=== PATIENT | female | born 1960 | race Caucasian/White ===

== ENCOUNTER 2022-01-26 01:17 | Day surgery (SDC) | payer OTHER, SELFPAY ==
[2022-01-25 10:45] VITALS: BMI 27.3
[2022-01-26] VITALS (14 sets, daily range): BP systolic 90–131; BP diastolic 54–82; PULSE 58–110; RESP 16–20; TEMP 36.4; O2SAT 94–100; BMI 28.1
--- NOTE | 2022-01-26 07:30 | ECG_ITS ---
Measurements Intervals [place] Rate: 61 P: 41 [place]: 161 QRS: 64 QRSD: 77 T: 38 QT: 417 QTc: 423 Interpretive Statements SINUS RHYTHM NORMAL ECG Electronically Signed On 01-26-2022 15:25:52 CDT by Jorge Fernandez D.O.
[2022-01-26 08:04] LABS: Anion Gap 4 mmol/L (8-16); Blood Urea Nitrogen 14 mg/dL (7-17); Carbon Dioxide 28 mmol/L (22-30); Chloride 104 mmol/L (98-107); Estimated CRCL calculation 67 ml/min; Estimated Glomerular Filt Rate > 60; Glucose 130 mg/dL (65-110); Magnesium 1.7 mg/dL (1.6-2.3); Potassium 4.3 mmol/L (3.4-5.0); Sodium 136 mmol/L (137-145)
--- NOTE | 2022-01-26 09:00 | ECG_ITS ---
Measurements Intervals [place] Rate: 98 P: [place]: 0 QRS: 43 QRSD: 83 T: -43 QT: 375 QTc: 481 Interpretive Statements ATRIAL FIBRILLATION VENTRICULAR PREMATURE COMPLEX ABNORMAL ECG Electronically Signed On 01-26-2022 7:49:36 CDT by Jorge Fernandez D.O.
--- NOTE | 2022-01-26 09:01 | WPDMODSED ---
Moderate Sedation Note-Pt Data Patient Data Diagnosis: Atrial fibrillation, persistent Present Complaint: No complaints Procedure to be performed/Plan: DC cardioversion Allergies Allergy/AdvReac Type Severity Reaction Status Date / Time No Known Allergies Allergy Verified 01/26/22 07:46 Home Medications Medication Instructions Recorded Confirmed Type spironolactone 100 mg tablet 100 mg PO DAILY 03/07/21 01/25/22 History calcium-vitamin D3 See Rx Instructions .Route .COMPLEX 01/25/22 01/25/22 History metformin 500 mg tablet,extended See Rx Instructions .Route .COMPLEX 01/25/22 01/25/22 History release 24 hr rivaroxaban 20 mg tablet (Xarelto) 1 tablet PO DAILY 01/25/22 01/25/22 History Current Medications: Active Medications Sodium Chloride (Normal Saline Iv) 1,000 mls @ 30 mls/hr IV CONT .Q24H SHARON Sedation/Anesthesia: No previous sedation/anesthesia problems (including family history). [facility] Surgical History Surgical History H/O hemorrhoidectomy H/O rhinoplasty H/O tubal ligation Family History Family History Father Heart disease Diabetes mellitus Mother Heart disease Social History Social History Smoking status: Never smoker Alcohol intake: current Alcohol use details: not usually, only socially Substance use: never Substance use type: does not use Living arrangements: other Additional occupation/education comments: [employer] Spiritual care concerns: No Mod Sed Physical Exam Physical Exam Pre Procedural Exam: Normal: Appearance, Neck, Throat, Airway, Lungs, Heart Size, Heart Rate, Neuro Exam and Extremities and Variation: Heart Rhythm (Irregularly irregular) Hours since solid foods: 14 Hours since liquid intake: 14 Mallampati Classification: class II Internal Medicine - PN: Obj Da Vital Signs Vital Signs: Vital Signs - 24 hr 01/26/22 07:48 Temperature 36.4 C Pulse Rate 95 Respiratory Rate 20 Blood Pressure 131/73 Pulse Oximetry 100 Oxygen Delivery Room Air Meds/Results Medications: Active Medications Generic Name Dose Route Start Last Admin Trade Name Freq PRN Reason Stop Dose Admin Sodium Chloride 1,000 mls @ 30 mls/hr 01/26/22 07:30 Normal Saline Iv IV CONT .Q24H SHARON Labs CBC & Chem 7: 01/26/22 07:45 Labs: Laboratory Results - last 24 hr 01/26/22 07:45 Sodium 136 L Potassium 4.3 Chloride 104 Carbon Dioxide 28 Anion Gap 4 L BUN 14 Creatinine 0.90 Estim Creat Clear Calc 67 Estimated GFR > 60 Glucose 130 H Calcium 9.0 Magnesium 1.7 ASA Classification/Sedation ASA Classification/Sedation ASA Class: II Emergent: No Risks: Risks, benefits and alternatives explained and patient/family accepted plan for sedation. Patient re-evaluated immediately prior to sedation.
--- NOTE | 2022-01-26 09:13 | P.PCNCC_ITS ---
Cardiac Cath Procedure Note Date of procedure:: 01/26/22 Performing physician:: Duarte Carrizales MD Indication:: Persistent atrial fibrillation Brief clinical history:: This is a 61-year-old woman who was found to have atrial fibrillation as an outpatient which is asymptomatic and persistent and of on known duration. Procedure Procedure performed:: DC cardioversion Sedation/Medication given:: IV propofol total dosage of 60 mg Estimated blood loss:: No blood loss Procedure note:: Patient was brought to the cardiac slab off mill tender holding area where she was in the postabsorptive state. IV access was placed in the right arm and defibrillator patches were placed in the AP position. She was then sedated with propofol a total dosage of 60 mg was given in aliquots which provided excellent sedation. She was DC cardioverted with 200 joules x1 shock restoring normal sinus rhythm Findings:: As above Conclusion:: Successful uncomplicated DC cardioversion of atrial fib to sinus rhythm using 200 joules x1 shock. Duarte Carrizaels MD [facility]
[2022-01-26] MEDS: SOTALOL HCL 80 MG TABLET PO (09:36)
--- NOTE | 2022-01-26 11:01 | SUR.PHASEII ---
iv d/c tip intact. d/c instructions given and new medication education given as well as side effects. patient and verbalize understanding and all questions and concerns addressed. patient taken to personal vehicle via [place], [place] her home.
== END 2022-01-26 10:55 | disposition home or self-care (01) ==
PROVIDERS: PCP Family Medicine; Visit Provider Specialist
PROC: 5A2204Z Restoration of Cardiac Rhythm, Single (ICD-10-PCS; principal; 2022-01-26 09:00)
DX: I48.19 Other persistent atrial fibrillation (principal); Z79.01 Long term (current) use of anticoagulants
CPT/HCPCS: 36415; 80048; 83735; 92960; A9270; J2704; J7040

== ENCOUNTER 2022-01-27 11:49 | Outpatient (CLI) | payer OTHER, SELFPAY ==
--- NOTE | 2022-01-27 | ECG_ITS ---
Measurements Intervals [place] Rate: 48 P: 34 [place]: 162 QRS: 60 QRSD: 81 T: 48 QT: 473 QTc: 423 Interpretive Statements SINUS BRADYCARDIA BORDERLINE ST-T WAVE ABNORMALITY- INF/LAT LEADS BASELINE WANDER- I, II, AVR, AVL,A VF, V4, V6 ABNORMAL ECG Electronically Signed On 01-27-2022 15:32:10 CDT by Jorge Fernandez D.O.
== END 2022-01-27 11:50 | disposition home or self-care (01) ==
LOC: ANHCARD 11:53
PROVIDERS: PCP Family Medicine; Visit Provider Specialist
DX: I48.91 Unspecified atrial fibrillation (principal); R94.31 Abnormal electrocardiogram [ECG] [EKG]
CPT/HCPCS: 93005

== ENCOUNTER → 2022-05-19 09:56 | Outpatient (CLI) | payer OTHER, SELFPAY ==
--- NOTE | ~2022-05-19 | DEXA_ITS ---
Bone Density Report Name: ADELE BARRY Age: 61 Sex: Female Ethnicity: White Date of : 1960 Indication: monitoring treatment; postmenopausal Referring Provider: YAJAIRA, LINDSEY Gallegos Study: Bone densitometry was performed. Exam Date: May 19, 2022 Accession number: [id number] Bone Density: Region BMD T-score Z-score Classification AP Spine (L1, L2, L3) 1.170 1.4 2.9 Normal Femoral Neck (Left) 0.834 -0.1 1.2 Normal Total Hip (Left) 1.026 0.7 1.8 Normal Femoral Neck (Right) 0.777 -0.7 0.7 Normal Total Hip (Right) 1.012 0.6 1.7 Normal Total Hip Mean 1.019 0.7 1.8 Normal World Health Organization criteria for BMD impression classify patients as: Normal (T-score at or above -1.0), Osteopenia (T-score between -1.0 and -2.5), or Osteoporosis (T-score at or below -2.5). 10-year Fracture Risk: FRAX not reported because: All T-scores for Spine Total, Hip Total, Femoral Neck at or above -1.0 Treated for osteoporosis Previous Exams: Region Exam Age BMD T-score BMD Change BMD Change Date g/cm2 vs Baseline vs Previous AP Spine(L1, L2, L3) 05/19/2022 61 1.170 1.4 0.168* 0.053* 09/07/2017 56 1.116 0.9 0.114* 0.036* 08/03/2014 53 1.080 0.6 0.078* 0.078* 07/19/2011 50 1.002 -0.1 Total Hip(Left) 05/19/2022 61 1.026 0.7 0.125* 0.046* 09/07/2017 56 0.980 0.3 0.079* 0.002 08/03/2014 53 0.977 0.3 0.077* 0.077* 07/19/2011 50 0.901 -0.3 Total Hip(Right) 05/19/2022 61 1.012 0.6 0.111* 0.053* 09/07/2017 56 0.960 0.1 0.058* 0.003 08/03/2014 53 0.957 0.1 0.056* 0.056* 07/19/2011 50 0.901 -0.3 *Denotes significance at 95% confidence level, LSC for AP Spine = 0.022 g/cm2, LSC for Total Hip = 0.027 g/cm2 Clinical Information Provided by Patient: Is being treated for osteoporosis Has used the following medications: HRT (i.e. estrogen/hormone therapy), Vitamin D Patient maximum height was 69.5 Menopause Age: 52 Does not regularly consume dairy products Drinks caffeinated beverages Onset of menses at age 11 Number of children 3 Impression: The patient has normal bone mass. No significant bone loss was observed. Discussion: PATIENT UNDER TREATMENT WITH NO SIGNIFICANT BMD LOSS SINCE LAST EXAM. In an untreated patient, BMD typically
== END ==
PROVIDERS: PCP Nurse Practitioner; Visit Provider Nurse Practitioner
DX: Z78.0 Asymptomatic menopausal state (principal)
CPT/HCPCS: 77080

== ENCOUNTER 2022-12-10 05:56 | Day surgery (SDC) | payer OTHER, SELFPAY ==
[2022-10-22 09:52] VITALS: BMI 25.1
[2022-11-27 13:56] VITALS: BMI 26.6
--- NOTE | 2022-12-07 13:02 | P.PNAN_ITS ---
Anes - Initial Pre Proc Eval Procedure: Operation Date: 12/10/22 07:30 Proposed Procedures p Screening Colonoscopy - Cal Dominguez MD Date/Time: 12/07/22 13:02 Surgeon: Cal Dominguez MD Pre Op Diagnosis: Neoplasm Screening Patient Data Age: 61 Gender: F Height: 1.75 m Weight: 82 kg Allergies Allergy/AdvReac Type Severity Reaction Status Date / Time No Known Allergies Allergy Verified 12/10/22 06:28 Home Medications Medication Instructions Recorded Confirmed Type spironolactone 100 mg tablet 100 mg PO DAILY 03/07/21 12/10/22 History calcium-vitamin D3 See Rx Instructions .Route .COMPLEX 01/25/22 12/10/22 History metformin 500 mg tablet,extended See Rx Instructions .Route .COMPLEX 01/25/22 12/10/22 History release 24 hr rivaroxaban 20 mg tablet (Xarelto) 1 tablet PO DAILY 01/25/22 12/10/22 History sotalol 80 mg tablet 80 mg PO Q12HR #60 tabs 01/26/22 12/10/22 Rx Patient hx anesthesia problems: none Family hx anesthesia problems: none Results Review: All pre-operative results and documents have been reviewed as part of the pre- operative evaluation. [facility] Past Medical History Medical History (Updated 12/07/22 @ 16:01 by Cal Dominguez MD) Atrial fibrillation Surgical History Surgical History H/O hemorrhoidectomy H/O rhinoplasty H/O tubal ligation Family History Family History Father Heart disease Diabetes mellitus Mother Heart disease Social History Social History Smoking status: Never smoker Alcohol intake: current Alcohol use details: socially Substance use: never Substance use type: does not use Living arrangements: with family Occupation/Education: occupation Additional occupation/education comments: [employer] Spiritual care concerns: No Anes - Eval Final PreProcedure Day of Procedure 12/07/22 13:02 Patient weight: overweight Heart: regular rate and rhythm Lungs: clear to auscultation Airway: Mallampati scale class II Neurological: alert and oriented Last oral intake: >/= 8 hours ASA classification: III Emergent: no Anesthetic plan: proceed Anesthesia type and monitoring: general GIVS and standard monitoring Results Review: All pre-operative results and documents have been reviewed as part of the pre- operative evaluation. Informed Consent: The patient's anesthetic plan and its attendant risks and benefits were discussed with the patient/family/POA. Questions were solicited and answers provided to the satisfaction of the patient/family/POA.
--- NOTE | 2022-12-07 16:00 | P.HP_ITS ---
History of Present Illness History of Present Illness Consent: Risks, benefits, and alternatives have been discussed and questions answered. Patient agrees to proceed with procedure. Chief complaint: Neoplasm Screening Narrative: Marcia Hernandez is a 61 year old female Referred for colon cancer screening. Her last colonoscopy was 5 years ago. She has a history of polyps. Review of Systems Review of Systems: All systems reviewed & are unremarkable except as noted in HPI and below PMFSH Past Medical History Medical History Atrial fibrillation Surgical History Surgical History H/O hemorrhoidectomy H/O rhinoplasty H/O tubal ligation Family History Family History Father Heart disease Diabetes mellitus Mother Heart disease Social History Social History Smoking status: Never smoker Alcohol intake: current Alcohol use details: socially Substance use: never Substance use type: does not use Living arrangements: with family Occupation/Education: occupation Additional occupation/education comments: Junior [employer] Spiritual care concerns: No Meds Home Medications and Allergies Home Medications Medication Instructions Recorded Confirmed Type spironolactone 100 mg tablet 100 mg PO DAILY 03/07/21 12/10/22 History calcium-vitamin D3 See Rx Instructions .Route .COMPLEX 01/25/22 12/10/22 History metformin 500 mg tablet,extended See Rx Instructions .Route .COMPLEX 01/25/22 12/10/22 History release 24 hr rivaroxaban 20 mg tablet (Xarelto) 1 tablet PO DAILY 01/25/22 12/10/22 History sotalol 80 mg tablet 80 mg PO Q12HR #60 tabs 01/26/22 12/10/22 Rx Allergies Allergy/AdvReac Type Severity Reaction Status Date / Time No Known Allergies Allergy Verified 12/10/22 06:28 Exam Const: General: alert Orientation/consciousness: patient oriented x3 Resp: Auscultation: clear to auscultation bilaterally Cardio: Rhythm: regular rhythm GI: GI Palp: Yes Soft to palpation and No Tenderness to palpation present (GI) Neuro: General: patient oriented x3 Assessment and Plan Assessment and plan (1) Colon cancer screening: Code(s): Z12.11 - Encounter for screening for malignant neoplasm of colon Status: Acute Assessment and Plan: Colonoscopy with possible biopsy or polypectomy or cautery or injection of substances.
[2022-12-10 06:26] VITALS: BP 107/69; PULSE 58; RESP 18; TEMP 36.7; O2SAT 100
[2022-12-10 06:45] LABS: Glucose Point of Care 93 mg/dl (65-105)
[2022-12-10] MEDS: LACTATED RINGERS 1,000 ML 150 ML IV CONT (06:51)
[2022-12-10 07:45] VITALS: BP 106/56; PULSE 66; RESP 16; O2SAT 97
[2022-12-10 07:55] VITALS: BP 95/65; PULSE 53; RESP 16; O2SAT 98
[2022-12-10 08:05] VITALS: BP 107/68; PULSE 56; RESP 16; O2SAT 98
--- NOTE | 2022-12-10 08:31 | SUR.PHASEII ---
12/10/22 0825 late note, Per Dr. Dominguez, Pt to resume Xarelto today 12/10/22. Pt verbalizes understanding.
--- NOTE | 2022-12-10 13:19 | WPDANESPN ---
Anes - Prog Note Post-Op Date/Time: 12/10/22 13:19 Cardiovascular status: normal Respiratory status: normal Airway patency: baseline Mental status: baseline Post-Op hydration status: normal Vital Signs: Last Vital Signs Temp 36.7 C 12/10/22 06:26 Pulse 56 L 12/10/22 08:05 Resp 16 12/10/22 08:05 BP 107/68 12/10/22 08:05 Pulse Ox 98 12/10/22 08:05 O2 Del Method Room Air 12/10/22 08:05 Pain Score (VAS): 0 I/O: Intake & Output 12/09/22 12/10/22 12/10/22 23:59 07:59 15:59 Intake Total 200 100 Balance 200 100 12/10/22 06:42 POC Capillary Glucose 93 Post-procedural complaints: none Patient Feedback: Patient satisfied with anesthetic care. Other Findings: Patient vital signs back to baseline. Patient denies nausea and vomiting. Patient's pain under control. Patient OK for discharge.
== END 2022-12-10 08:28 | disposition home or self-care (01) ==
PROVIDERS: PCP Podiatrist Foot & Ankle Surgery; Visit Provider Internal Medicine Gastroenterology
PROC: 0DJD8ZZ Inspection of Lower Intestinal Tract, Via Natural or Artificial Opening Endoscopic (ICD-10-PCS; CPT 45378; principal; 2022-12-10 07:30)
DX: Z12.11 Encounter for screening for malignant neoplasm of colon (principal)
CPT/HCPCS: 45378

== ENCOUNTER 2023-06-08 06:46 | Outpatient (CLI) | payer OTHER, SELFPAY ==
--- NOTE | 2023-06-08 08:24 | ECG_ITS ---
Measurements Intervals [place] Rate: 52 P: 48 [place]: 160 QRS: 53 QRSD: 85 T: 32 QT: 442 QTc: 413 Interpretive Statements SINUS BRADYCARDIA BORDERLINE ECG COMPARED TO ECG 01/27/2022 12:08:53 HEART RATE HAS INCREASED Electronically Signed On 06-08-2023 9:16:47 TRANSITION COACH by Jorge Fernandez D.O.
== END 2023-06-08 06:47 | disposition home or self-care (01) ==
PROVIDERS: PCP Family Medicine Sports Medicine; Visit Provider Podiatrist Foot & Ankle Surgery
DX: R03.0 Elevated blood-pressure reading, without diagnosis of hypertension (principal)
CPT/HCPCS: 93005

== ENCOUNTER → 2024-06-25 13:49 | Outpatient (REF) | payer OTHER, SELFPAY | LOC: ANHLAB 13:49 | PROVIDERS: PCP Family Medicine Sports Medicine; Visit Provider Physician Assistant Surgical | DX: C44.91 Basal cell carcinoma of skin, unspecified (principal) | CPT/HCPCS: 88305 ==